=== PATIENT | female | born 1965 | race Caucasian/White ===

== ENCOUNTER 2017-01-14 11:58 | Inpatient (IN) | payer OTHER ==
[~2017-01-14] VITALS: Ht 165.1 cm; Wt 65.3 kg
[~2017-01-14 11:58] MED LIST: ACET-929 PO; ALPR1TAB7; CARI-316 PO; DEXL60CA3 PO; METO25TA62 PO; OMEP20TA34; PROAIR; RANI150C11; TRIAMCINOLONE; [UNRECOGNIZED DRUG - OTHER]
[2017-01-14 12:48] LABS: Basophils # (auto) 0 uL; Basophils % (auto) 0.5 % (0.0-2.0); Eosinophils # (auto) 0.2 uL; Eosinophils % (auto) 2.6 % (0.0-7.0); Hematocrit 42.9 % (36.0-46.0); Hemoglobin 14.6 g/dL (12.2-16.2); Lymphocytes # (auto) 2.7 uL; Lymphocytes % (auto) 37.5 % (10.0-50.0); Mean Corpuscular Hemoglobin 32.4 pg (28.0-32.0); Mean Corpuscular Volume 95.2 fL (80.0-100.0); Mean Platelet Volume 8.4 fL (7.4-10.4); Monocytes # (auto) 0.5 uL; Monocytes % (auto) 6.4 % (0.0-12.0); Neutrophils # (auto) 3.8 uL; Platelet Count (auto) 328 10^3/uL (140-450); Red Cell Distribution Width 14.7 % (11.6-16.0); White Blood Cell 7.1 10^3/uL (4.4-10.8)
[2017-01-14 12:48] LABS: Urine RBC None Seen /hpf (0 - 4)
[2017-01-14 12:58] LABS: Urine Bilirubin Negative (Negative); Urine Blood Negative /uL (Negative); Urine Color Yellow (Yellow); Urine Glucose Normal (Normal); Urine Ketone Negative (Negative); Urine Nitrite Negative (Negative); Urine Squamous Epithelial Cell FEW /hpf (<5); Urine Urobilinogen Normal (Negative); Urine pH 6.5 (5.0-8.0)
[2017-01-14 13:21] LABS: Albumin 4.2 g/dL (3.4-5.0); BUN/Creatinine Ratio 8.2; Bilirubin, Total 0.6 mg/dL (0.2-1.0); Potassium 3.9 mmol/L (3.5-5.1); Total Protein 7.7 g/dL (6.4-8.2)
[2017-01-14] MEDS ORDERED: PANTOPRAZOLE SODIUM 40 MG/10 ML VIAL IV ONE (17:00)
[2017-01-14] MEDS ORDERED: SODIUM CHLORIDE 0.9% 1,000 ML IV ONE (20:00)
[2017-01-14 21:01] LABS: INR 1.02 (0.9-1.15); Partial Thromboplastin Time 28.9 sec (22.64-33.71); Prothrombin Time 11.1 sec (9.37-12.3)
[2017-01-14] MEDS ORDERED: TEMAZEPAM 15 MG CAP PO PRN (21:30)
[2017-01-14] MEDS ORDERED: ACETAMINOPHEN 325 MG TAB PO PRN (21:30)
[2017-01-14] MEDS ORDERED: HYDROcodone-ACET 5/325MG TAB PO PRN (21:30)
[2017-01-14] MEDS: ONDANSETRON HCL 4 MG/2 ML VIAL IV PRN (22:21)
[2017-01-14] MEDS: MORPHINE SULF INJ 2 MG/ML SYRINGE 1ML IV PRN (22:21)
[2017-01-14 22:25] VITALS: BP 123/93
[2017-01-14 22:30] VITALS: BP 123/93
[2017-01-14] MEDS: SODIUM CHLORIDE 0.9% 1,000 ML IV SCH (23:10)
[2017-01-15] MEDS: MORPHINE SULF INJ 2 MG/ML SYRINGE 1ML IV PRN (04:51)
[2017-01-15] MEDS: ONDANSETRON HCL 4 MG/2 ML VIAL IV PRN (04:51)
[2017-01-15 04:52] VITALS: BP 105/63
[2017-01-15 08:32] VITALS: BP 124/82
[2017-01-15] MEDS ORDERED: PANTOPRAZOLE SODIUM 40 MG/10 ML VIAL IV SCH (10:00)
[2017-01-15] MEDS: SODIUM CHLORIDE 0.9% 1,000 ML IV SCH (10:00)
== END 2017-01-15 10:38 | disposition left against medical advice (07) | DRG 392 ==
LOC: ER 11:58 → WEST WING 11:59
PROVIDERS: ADMIT Internal Medicine; ATTEND Internal Medicine
DX: R10.9 Unspecified abdominal pain (principal); I48.91 Unspecified atrial fibrillation; I10 Essential (primary) hypertension; K80.20 Calculus of gallbladder without cholecystitis without obstruction; F41.9 Anxiety disorder, unspecified; Z87.11 Personal history of peptic ulcer disease; Z90.49 Acquired absence of other specified parts of digestive tract; Z90.89 Acquired absence of other organs; Z82.5 Family history of asthma and other chronic lower respiratory diseases; Z83.3 Family history of diabetes mellitus; Z82.0 Family history of epilepsy and other diseases of the nervous system; Z81.1 Family history of alcohol abuse and dependence; Z88.0 Allergy status to penicillin; Z88.2 Allergy status to sulfonamides; Z71.89 Other specified counseling
CPT/HCPCS: 36415; 74176; 76705; 80053; 81001; 81025; 82150; 83690; 84702; 85025; 85610; 85730; 86850; 86900; 86901; 93005; 96361; 96374; 99291; C9113; J2405

== ENCOUNTER → 2017-01-18 | Outpatient (CLI) | payer OTHER ==
[~2017-01-18] MED LIST changes: -ACET-929 PO; -OMEP20TA34; -PROAIR; -TRIAMCINOLONE; -[UNRECOGNIZED DRUG - OTHER]
[2017-01-18 12:48] LABS: Urine RBC None Seen /hpf (0 - 4)
[2017-01-18 13:08] LABS: Basophils # (auto) 0 uL; Basophils % (auto) 0.6 % (0.0-2.0); Eosinophils # (auto) 0.2 uL; Eosinophils % (auto) 2.6 % (0.0-7.0); Hematocrit 42.9 % (36.0-46.0); Hemoglobin 14.5 g/dL (12.2-16.2); Lymphocytes # (auto) 2.8 uL; Lymphocytes % (auto) 33.4 % (10.0-50.0); Mean Corpuscular Hemoglobin 32.3 pg (28.0-32.0); Mean Corpuscular Hgb Conc. 33.8 g/dL (32.0-36.0); Mean Corpuscular Volume 95.3 fL (80.0-100.0); Mean Platelet Volume 9.5 fL (7.4-10.4); Monocytes # (auto) 0.4 uL; Neutrophils # (auto) 4.8 uL; Neutrophils % (auto) 58.4 % (37.0-80.0); Platelet Count (auto) 310 10^3/uL (140-450); Red Cell Distribution Width 14.8 % (11.6-16.0); White Blood Cell 8.3 10^3/uL (4.4-10.8)
[2017-01-18 13:34] LABS: Albumin 4.3 g/dL (3.4-5.0); BUN/Creatinine Ratio 6.9; Bilirubin, Total 0.6 mg/dL (0.2-1.0); Calcium 9.3 mg/dL (8.5-10.1); Potassium 3.8 mmol/L (3.5-5.1); Total Protein 7.8 g/dL (6.4-8.2)
[2017-01-18 13:49] LABS: Urine Bilirubin Negative (Negative); Urine Blood Negative /uL (Negative); Urine Color Yellow (Yellow); Urine Glucose Normal (Normal); Urine Ketone Negative (Negative); Urine Nitrite Negative (Negative); Urine Squamous Epithelial Cell FEW /hpf (<5); Urine Urobilinogen Normal (Negative); Urine pH 6.5 (5.0-8.0)
== END | disposition home or self-care (01) ==
LOC: LAB 12:08
PROVIDERS: ATTEND Internal Medicine
DX: Z00.00 Encounter for general adult medical examination without abnormal findings (principal); I10 Essential (primary) hypertension; E78.2 Mixed hyperlipidemia; E55.9 Vitamin D deficiency, unspecified
CPT/HCPCS: 36415; 80053; 80061; 81001; 82306; 84443; 85025

== ENCOUNTER → 2017-03-29 | Outpatient (CLI) | payer OTHER ==
[~2017-03-29] VITALS: Ht 165.1 cm; Wt 61.2 kg
[~2017-03-29] MED LIST changes: +ADENOSINE 51 MG in GIVE UN-DILUTED 0 ML IV ONE; +ADENOSINE 90 MG/30 ML INJ IV ONE
== END | disposition home or self-care (01) ==
LOC: Rad HDHVI 09:28
PROVIDERS: ATTEND Internal Medicine Cardiovascular Disease
DX: Z01.810 Encounter for preprocedural cardiovascular examination (principal); I48.91 Unspecified atrial fibrillation; F17.210 Nicotine dependence, cigarettes, uncomplicated; Z82.49 Family history of ischemic heart disease and other diseases of the circulatory system
CPT/HCPCS: 78452; 93005; 96374; 96375; A9500; J0153

== ENCOUNTER → 2017-04-15 | Outpatient (CLI) | payer OTHER ==
[~2017-04-15] MED LIST changes: -ADENOSINE 51 MG in GIVE UN-DILUTED 0 ML IV ONE; -ADENOSINE 90 MG/30 ML INJ IV ONE
== END | disposition home or self-care (01) ==
LOC: Rad HDHVI 08:03
PROVIDERS: ATTEND Internal Medicine Cardiovascular Disease
DX: J44.9 Chronic obstructive pulmonary disease, unspecified (principal); R94.31 Abnormal electrocardiogram [ECG] [EKG]; I10 Essential (primary) hypertension; I48.91 Unspecified atrial fibrillation
CPT/HCPCS: 93306

== ENCOUNTER 2017-05-04 13:10 | Inpatient (IN) | payer OTHER ==
[~2017-05-04] VITALS: Ht 165.1 cm; Wt 65.4 kg
[2017-05-04 13:57] LABS: Basophils # (auto) 0.1 uL; Basophils % (auto) 0.7 % (0.0-2.0); Eosinophils # (auto) 0.3 uL; Eosinophils % (auto) 3.7 % (0.0-7.0); Hematocrit 41.3 % (36.0-46.0); Hemoglobin 14.1 g/dL (12.2-16.2); Lymphocytes # (auto) 2.8 uL; Lymphocytes % (auto) 33.6 % (10.0-50.0); Mean Corpuscular Hemoglobin 32.8 pg (28.0-32.0); Mean Corpuscular Hgb Conc. 34.1 g/dL (32.0-36.0); Mean Corpuscular Volume 96.2 fL (80.0-100.0); Mean Platelet Volume 8.4 fL (6.9-10.8); Monocytes # (auto) 0.5 uL; Monocytes % (auto) 6.1 % (0.0-12.0); Neutrophils # (auto) 4.7 uL; Neutrophils % (auto) 55.9 % (37.0-80.0); Nucleated Red Blood Cells % 0.1 %; Platelet Count (auto) 278 10^3/uL (140-450); Red Cell Distribution Width 14.4 % (11.8-14.3); White Blood Cell 8.4 10^3/uL (4.4-10.8)
[2017-05-04 14:18] LABS: Albumin 4.1 g/dL (3.4-5.0); Alkaline Phosphatase 41 U/L (45-117); Anion Gap 7 (5-15); Aspartate Aminotransferase 13 U/L (15-37); BUN/Creatinine Ratio 6.9; Bilirubin, Total 0.4 mg/dL (0.2-1.0); Blood Urea Nitrogen 6 mg/dL (7-18); Calcium 8.7 mg/dL (8.5-10.1); Carbon Dioxide 23 mmol/L (21-32); Chloride 105 mmol/L (98-107); GFR African American 89 mL/min; GFR Non-African American 73 mL/min; Glucose 98 mg/dL (74-106); Magnesium 2.5 mg/dL (1.6-2.6); Potassium 3.9 mmol/L (3.5-5.1); Sodium 135 mmol/L (136-145); Total Protein 7.7 g/dL (6.4-8.2)
[2017-05-04] MEDS ORDERED: ASPirin 81 mg TAB PO ONE (16:30)
[2017-05-04 16:56] LABS: B-Type Natriuretic Peptide 25.96 pg/mL (0-100)
[2017-05-04 17:03] LABS: Temperature: 23.5 C (20.0-25.0)
[2017-05-04 17:23] LABS: INR 0.98 (0.9-1.15); Partial Thromboplastin Time 28.7 sec (22.64-33.71); Prothrombin Time 10.7 sec (9.37-12.3)
[2017-05-04] MEDS ORDERED: TEMAZEPAM 15 MG CAP PO PRN (18:15)
[2017-05-04] MEDS ORDERED: LORazepam 0.5 MG TAB PO PRN (18:15)
[2017-05-04] MEDS ORDERED: MORPHINE SULF INJ 2 MG/ML SYRINGE 1ML IV PRN (18:15)
[2017-05-04] MEDS ORDERED: ACETAMINOPHEN 500 MG TAB PO PRN (18:15)
[2017-05-04] MEDS ORDERED: HYDROcodone-ACET 5/325MG TAB PO PRN (18:15)
[2017-05-04] MEDS ORDERED: NITROGLYCERIN 0.4 MG SL TAB SL PRN (18:15)
[2017-05-04] MEDS: SODIUM CHLORIDE 0.9% 1,000 ML IV SCH (18:44)
[2017-05-04] MEDS: PROMETHAZINE HCL 25 MG/ML 1ML IV PRN (19:20)
[2017-05-04] MEDS: MORPHINE SULF INJ 2 MG/ML SYRINGE 1ML IV PRN (21:29)
[2017-05-04 22:00] VITALS: BP 110/70
[2017-05-04] MEDS ORDERED: CARISOPRODOL 350 MG TAB PO PRN (22:00)
[2017-05-04] MEDS: ENOXAPARIN SOD 60 MG/0.6 ML SYRINGE SC SCH ×2 (22:00→22:38)
[2017-05-04] MEDS: FAMOTIDINE 20 MG TAB PO SCH (22:37)
[2017-05-05] MEDS: ALPRAZolam 0.5 MG TAB PO PRN ×3 (00:08→19:57)
[2017-05-05 00:45] VITALS: BP 110/70
[2017-05-05 05:00] VITALS: BP 103/61
[2017-05-05 05:56] LABS: Cholesterol 168 mg/dL (< 200); HDL Cholesterol 55 mg/dL (40-59); LDL Cholesterol 104 mg/dL (< 100); Triglycerides 108 mg/dL (< 150)
[2017-05-05 09:00] VITALS: BP 138/67
[2017-05-05] MEDS: NITROGLYCERIN 0.2MG/HR TOPICAL PATCH TD SCH (10:00)
[2017-05-05] MEDS: ENOXAPARIN SOD 60 MG/0.6 ML SYRINGE SC SCH (10:00)
[2017-05-05] MEDS: DEXLANSOPRAZOLE 60 MG PO SCH (10:00)
[2017-05-05] MEDS: SODIUM CHLORIDE 0.9% 1,000 ML IV SCH (10:13)
[2017-05-05] MEDS: ASPirin 81 mg TAB PO SCH (10:14)
[2017-05-05] MEDS: METOPROLOL SUCCINATE XL 50 MG TAB PO SCH (10:15)
[2017-05-05] MEDS: FAMOTIDINE 20 MG TAB PO SCH ×2 (10:16→22:00)
[2017-05-05] MEDS: MORPHINE SULF INJ 2 MG/ML SYRINGE 1ML IV PRN (10:26)
[2017-05-05] MEDS: PROMETHAZINE HCL 25 MG/ML 1ML IV PRN (10:26)
[2017-05-05 13:00] VITALS: BP 101/67
[2017-05-05] MEDS ORDERED: ALBUAER3 IN (17:22)
[2017-05-05 17:33] VITALS: BP 161/73
[2017-05-05 22:00] VITALS: BP 135/73
[2017-05-05] MEDS: ATORVASTATIN 20 MG TAB PO SCH (22:00)
[2017-05-06 05:00] VITALS: BP 143/97
[2017-05-06] MEDS: ALPRAZolam 0.5 MG TAB PO PRN ×2 (05:26→21:40)
[2017-05-06 08:00] VITALS: BP 135/75
[2017-05-06] MEDS ORDERED: LIDOCAINE 2%HCL (LOCAL ANESTH.) INJ 20ML MDV ONE ×2 (08:19→11:55)
[2017-05-06] MEDS ORDERED: IOHEXOL 350 MG/ML 100ML IJ ONE ×2 (08:19→11:55)
[2017-05-06 09:00] VITALS: BP 135/75
[2017-05-06] MEDS ORDERED: ANGIOMAX 250 MG VIAL IV ONE ×2 (09:14→13:33)
[2017-05-06] MEDS ORDERED: MIDAZOLAM HCL 1MG/1ML-2 ML VIAL ONE ×2 (09:15→13:33)
[2017-05-06] MEDS ORDERED: SODIUM CHL 0.9% 0 ML ONE ×2 (09:15→13:34)
[2017-05-06] MEDS ORDERED: fentaNYL CITRATE 100 MCG/2 ML VL ONE ×2 (09:15→13:33)
[2017-05-06] MEDS: DEXLANSOPRAZOLE 60 MG PO SCH (10:00)
[2017-05-06] MEDS: ASPirin 81 mg TAB PO SCH (10:00)
[2017-05-06] MEDS ORDERED: ALPRAZolam 0.5 MG TAB PO ONE (11:45)
[2017-05-06] MEDS: FAMOTIDINE 20 MG TAB PO SCH ×2 (11:48→21:40)
[2017-05-06] MEDS: METOPROLOL SUCCINATE XL 50 MG TAB PO SCH (11:50)
[2017-05-06] MEDS: NITROGLYCERIN 0.2MG/HR TOPICAL PATCH TD SCH (11:50)
[2017-05-06 13:00] VITALS: BP 157/84
[2017-05-06 17:37] VITALS: BP 113/74
[2017-05-06] MEDS: MORPHINE SULF INJ 2 MG/ML SYRINGE 1ML IV PRN (20:35)
[2017-05-06] MEDS: ATORVASTATIN 20 MG TAB PO SCH (21:40)
[2017-05-06 22:13] VITALS: BP 153/84
[2017-05-07 04:30] VITALS: BP 126/74
[2017-05-07] MEDS: MORPHINE SULF INJ 2 MG/ML SYRINGE 1ML IV PRN (05:17)
[2017-05-07] MEDS: PROMETHAZINE HCL 25 MG/ML 1ML IV PRN (06:55)
[2017-05-07] MEDS: ALPRAZolam 0.5 MG TAB PO PRN (06:55)
[2017-05-07 08:00] VITALS: BP 107/61
[2017-05-07] MEDS: NITROGLYCERIN 0.2MG/HR TOPICAL PATCH TD SCH (10:00)
[2017-05-07] MEDS: FAMOTIDINE 20 MG TAB PO SCH (10:38)
[2017-05-07] MEDS: ASPirin 81 mg TAB PO SCH (10:38)
== END 2017-05-07 14:00 | disposition home or self-care (01) | DRG 287 ==
LOC: ER 13:10 → TELE 13:11 → TELE-EAST 22:00
PROVIDERS: ADMIT Internal Medicine; ATTEND Internal Medicine
PROC: B2111ZZ Fluoroscopy of Multiple Coronary Arteries using Low Osmolar Contrast (ICD-10-PCS; principal; 2017-05-04)
DX: R07.9 Chest pain, unspecified (principal); I10 Essential (primary) hypertension; Z87.11 Personal history of peptic ulcer disease; Z83.3 Family history of diabetes mellitus; Z82.5 Family history of asthma and other chronic lower respiratory diseases; Z82.0 Family history of epilepsy and other diseases of the nervous system; I48.91 Unspecified atrial fibrillation; F41.9 Anxiety disorder, unspecified; Z90.49 Acquired absence of other specified parts of digestive tract
CPT/HCPCS: 36415; 71020; 80053; 80061; 80307; 82550; 83735; 83880; 84443; 84484; 85025; 85379; 85610; 85652; 85730; 86141; 93005; 94761; 99152; 99153; J2250

== ENCOUNTER → 2017-09-01 | Outpatient (CLI) | payer OTHER ==
[~2017-09-01] MED LIST changes: +ALBUAER3 IN; -RANI150C11
[2017-09-01 13:09] LABS: Basophils # (auto) 0.1 uL; Basophils % (auto) 0.6 % (0.0-2.0); Eosinophils # (auto) 0.3 uL; Eosinophils % (auto) 3.2 % (0.0-7.0); Hematocrit 44.1 % (36.0-46.0); Hemoglobin 14.9 g/dL (12.2-16.2); Lymphocytes # (auto) 3.4 uL; Lymphocytes % (auto) 39.1 % (10.0-50.0); Mean Corpuscular Hemoglobin 33.1 pg (28.0-32.0); Mean Corpuscular Hgb Conc. 33.8 g/dL (32.0-36.0); Monocytes # (auto) 0.6 uL; Monocytes % (auto) 6.6 % (0.0-12.0); Neutrophils # (auto) 4.3 uL; Neutrophils % (auto) 50.5 % (37.0-80.0); Nucleated Red Blood Cells % 0.1 %; Platelet Count (auto) 293 10^3/uL (140-450); White Blood Cell 8.6 10^3/uL (4.4-10.8)
[2017-09-01 14:19] LABS: BUN/Creatinine Ratio 6.6; Bilirubin, Total 0.4 mg/dL (0.2-1.0); Calcium 9.5 mg/dL (8.5-10.1); Potassium 4.9 mmol/L (3.5-5.1); Total Protein 7.6 g/dL (6.4-8.2)
== END | disposition home or self-care (01) ==
LOC: LAB 12:39
PROVIDERS: ATTEND Physician Assistant
DX: I10 Essential (primary) hypertension (principal); J44.9 Chronic obstructive pulmonary disease, unspecified; K80.20 Calculus of gallbladder without cholecystitis without obstruction
CPT/HCPCS: 36415; 80053; 80061; 85025

== ENCOUNTER 2018-07-27 06:51 | Emergency (ER) | payer OTHER ==
[~2018-07-27] VITALS: Ht 165.1 cm; Wt 72.6 kg
[~2018-07-27 06:51] MED LIST changes: -CARI-316 PO; +CARI350T22 PO
[2018-07-27] MEDS ORDERED: SODIUM CHLORIDE 0.9% 1,000 ML IV ONE ×2 (07:14)
[2018-07-27] MEDS ORDERED: METOPROLOL TARTRATE 50 MG TAB PO ONE (07:15)
[2018-07-27 07:39] LABS: Basophils # (auto) 0.1 uL; Basophils % (auto) 0.5 % (0.0-2.0); Eosinophils # (auto) 0.1 uL; Eosinophils % (auto) 1.2 % (0.0-7.0); Hematocrit 47.5 % (36.0-46.0); Hemoglobin 16.2 g/dL (12.2-16.2); Lymphocytes # (auto) 2.5 uL; Lymphocytes % (auto) 22.8 % (10.0-50.0); Mean Corpuscular Hemoglobin 33.1 pg (28.0-32.0); Mean Corpuscular Hgb Conc. 34.1 g/dL (32.0-36.0); Mean Corpuscular Volume 97.2 fL (80.0-100.0); Monocytes # (auto) 0.7 uL; Monocytes % (auto) 6.7 % (0.0-12.0); Neutrophils # (auto) 7.6 uL; Neutrophils % (auto) 68.8 % (37.0-80.0); Platelet Count (auto) 270 10^3/uL (140-450); Red Blood Cells 4.89 10^6/uL (4.0-5.20)
[2018-07-27 07:45] VITALS: BP 131/89
[2018-07-27 08:07] LABS: Alanine Aminotransferase 15 U/L (13-56); Albumin 4.1 g/dL (3.4-5.0); Anion Gap 5 (5-15); Aspartate Aminotransferase 15 U/L (15-37); BUN/Creatinine Ratio 9.7; Blood Alcohol < 3.0 mg/dL (0-5); Blood Urea Nitrogen 9 mg/dL (7-18); Calcium 8.8 mg/dL (8.5-10.1); Carbon Dioxide 22 mmol/L (21-32); Chloride 108 mmol/L (98-107); GFR African American 82 mL/min; GFR Non-African American 68 mL/min; Glucose 110 mg/dL (74-106); Magnesium 2.6 mg/dL (1.6-2.6); Sodium 135 mmol/L (136-145)
[2018-07-27 08:12] LABS: Alkaline Phosphatase 43 U/L (45-117); Bilirubin, Total 0.4 mg/dL (0.2-1.0); Total Protein 7.8 g/dL (6.4-8.2)
== END 2018-07-27 10:19 | disposition home or self-care (01) ==
LOC: ER 06:51
DX: E86.0 Dehydration (principal); D72.829 Elevated white blood cell count, unspecified; I48.91 Unspecified atrial fibrillation; I10 Essential (primary) hypertension; F17.210 Nicotine dependence, cigarettes, uncomplicated; Z90.89 Acquired absence of other organs; Z88.1 Allergy status to other antibiotic agents; Z88.2 Allergy status to sulfonamides
CPT/HCPCS: 36415; 70450; 80053; 80320; 82962; 83735; 84484; 85025; 96360

== ENCOUNTER 2023-09-21 08:55 | Emergency (ER) | payer OTHER ==
[~2023-09-21] VITALS: Ht 165.1 cm; Wt 65.9 kg
[~2023-09-21 08:55] MED LIST changes: -CARI350T22 PO; +CARI350T27 PO; -DEXL60CA3 PO; +DEXL60CA4 PO; -METO25TA62 PO; +METO25TA93 PO
[2023-09-21 09:13] VITALS: BP 131/76; PULSE 89; RESP 18; TEMP 97.7; O2SAT 94
[2023-09-21] MEDS ORDERED: METO25TA93 PO (09:39)
[2023-09-21] MEDS ORDERED: AUG875T PO (09:39)
[2023-09-21] MEDS ORDERED: IBUP1TAB5 PO (09:39)
[2023-09-21] MEDS ORDERED: OMEP20TA PO (09:39)
[2023-09-21] MEDS: KETOROLAC TROMETH 30 MG/ML 1ML VIAL IM ONE (09:46)
[2023-09-21] MEDS ORDERED: CIPR-173 PO (11:07)
[2023-09-21] MEDS ORDERED: CLIN150C18 PO (11:07)
== END 2023-09-21 09:52 | disposition home or self-care (01) ==
LOC: ER 08:55
DX: L03.012 Cellulitis of left finger (principal); I10 Essential (primary) hypertension; F17.210 Nicotine dependence, cigarettes, uncomplicated; Z88.0 Allergy status to penicillin; Z88.2 Allergy status to sulfonamides
CPT/HCPCS: 96372; 99283; J1885